=== PATIENT | male | born 1950 | race Caucasian/White ===

== ENCOUNTER → 2020-05-09 09:18 | Outpatient (BNVA) | payer MEDICARE, OTHER, SELFPAY | PROVIDERS: Visit Provider Urology | DX: N41.9 Inflammatory disease of prostate, unspecified (principal); N40.1 Benign prostatic hyperplasia with lower urinary tract symptoms; N13.8 Other obstructive and reflux uropathy | CPT/HCPCS: 99212; Q3014 ==

== ENCOUNTER → 2020-08-07 09:26 | Outpatient (BNVA) | payer MEDICARE, OTHER, SELFPAY | PROVIDERS: Visit Provider Urology | DX: N40.1 Benign prostatic hyperplasia with lower urinary tract symptoms (principal); N13.8 Other obstructive and reflux uropathy; N41.9 Inflammatory disease of prostate, unspecified | CPT/HCPCS: 51798; 99212 ==

== ENCOUNTER → 2021-02-12 08:57 | Outpatient (BNVA) | payer MEDICARE, OTHER, SELFPAY | PROVIDERS: Visit Provider Urology | DX: N40.1 Benign prostatic hyperplasia with lower urinary tract symptoms (principal); N13.8 Other obstructive and reflux uropathy; N41.9 Inflammatory disease of prostate, unspecified | CPT/HCPCS: 51798; 99212 ==

== ENCOUNTER 2022-01-21 13:41 | Outpatient (REF) | payer MEDICARE, OTHER, SELFPAY | END 2022-01-21 13:42 | disposition home or self-care (01) | LOC: HO.HMGCLDS 13:41 | PROVIDERS: Visit Provider Urology | DX: Z12.5 Encounter for screening for malignant neoplasm of prostate (principal); N40.1 Benign prostatic hyperplasia with lower urinary tract symptoms; N13.8 Other obstructive and reflux uropathy | CPT/HCPCS: 36415; 84153 ==

== ENCOUNTER → 2022-02-12 09:21 | Outpatient (BNVA) | payer MEDICARE, OTHER, SELFPAY | PROVIDERS: Visit Provider Urology | DX: N40.1 Benign prostatic hyperplasia with lower urinary tract symptoms (principal); N13.8 Other obstructive and reflux uropathy; N41.1 Chronic prostatitis; B96.89 Other specified bacterial agents as the cause of diseases classified elsewhere | CPT/HCPCS: 51798; 99212 ==

== ENCOUNTER 2023-01-22 12:18 | Outpatient (REF) | payer MEDICARE, OTHER, SELFPAY ==
[2023-01-22 13:51] LABS: Prostate Specific Antigen 1.06 ng/mL (<0.05-4.0)
== END 2023-01-22 12:19 | disposition home or self-care (01) ==
LOC: HO.10HDL 12:18
PROVIDERS: Visit Provider Urology
DX: N40.1 Benign prostatic hyperplasia with lower urinary tract symptoms (principal); N13.8 Other obstructive and reflux uropathy; Z12.5 Encounter for screening for malignant neoplasm of prostate
CPT/HCPCS: 36415; 84153

== ENCOUNTER 2023-02-13 08:50 | Outpatient (AMB) | payer MEDICARE, OTHER, SELFPAY ==
--- NOTE | 2023-02-13 08:50 | MHC.OFFVIS ---
Intake Intake Visit Reasons: 1Y PSA(set) Intake Note: Patient presents for tele visit follow up PSA Urology Medications: Finasteride Blood Thinner: none Water Service Dispatcher Required: No Allergies No Known Allergies Allergy (Verified 02/13/23 08:53) HPI HPI Comments History of Present Illness Details Kiarra is a pleasant male. He is seen for the following urologic conditions - prostatitis with chronic pelvic pain Telemedicine Evaluation 15 min Consultation [employer] Video attempted Yearly follow-up No episodes of prostatitis while on finasteride 3 times a week Continue 12 month follow-up PSA Went to [employer] last night and had a great time PSA 01/20 1.2 Prostatitis/CPPS: Ongoing symptoms Chronic discolored ejaculate Help with meloxicam They present for evaluation of chronic prostatitis. He is currently being treated with observation. Current symptoms include nocturia No incomplete emptying No frequency No intermittency No urgency Yes Symptoms have been present Ongoing since August 2018. Pain is present lower back, perineum. Type of prostatitis II - chronic bacterial. [facility] Medical History Chronic prostatitis Surgical History History of cervical spinal surgery History of back surgery Review of Systems Const Denies chills and Denies fever(s) Card Reports no additional complaints and Denies syncope Resp Denies cough GI Denies abdominal pain and Denies heartburn Reports as per HPI and Denies change in libido Neuro Denies syncope Psych Denies change in libido Endo Denies change in libido Physical Exam Const General: cooperative, healthy appearing, comfortable and no acute distress Orientation/consciousness: patient oriented x3 HEENT Face and sinus: Yes normal facial exam Mouth: moist mucous membranes Neck Neck: Yes normal visual inspection, Yes full ROM and Yes trachea midline Chest Chest palpation & inspection: normal inspection of the chest Resp Effort & Inspection: normal respiratory effort, able to speak in complete sentences and no respiratory distress GI Inspection: Yes normal to inspection Back/Spine/Pelvis Cervical Spine: normal cervical lordosis Thoracic/Lumbar Spine: thoracic and lumbar spine normal to inspection Skin General skin exam: no rashes or lesions noted Neuro General: patient oriented x3, gait normal, tone normal and moves all extremities Extrem General: Yes normal to inspection and Yes capillary refill normal Assessment & Plan Assessment & Plan (1) BPH w urinary obs/LUTS: Code(s): N40.1 - Benign prostatic hyperplasia with lower urinary tract symptoms; N13.8 - Other obstructive and reflux uropathy (2) Prostatitis: Code(s): N41.9 - Inflammatory disease of prostate, unspecified Plan Twelve month follow-up Patient Instructions: Imaging studies, laboratory and physical exam results were discussed and reviewed in detail. No major barriers to patient understanding were identified. An opportunity to ask questions regarding the treatment plan was provided. All questions were answered. The patient expressed understanding and agreement with the above treatment plan. The patient is aware they should contact our office by phone for worsening of their current condition or the appearance of new urologic symptoms. Compliance is encouraged with any medications and followup testing that is ordered. It is a privilege to participate in the urologic care of your patient. If you have any questions or concerns regarding treatment for the above conditions, or other urologic issues, please do not hesitate to contact me. The office telephone contact is [phone]. This note is constructed using voice recognition software. While every effort has been made to ensure accuracy pharmacy informaticist errors may have been included. Yours sincerely, Dr Boyd Guzmán MD, [facility] - Urology Providers of Expert, Compassionate Care for the Genitourinary System Telehealth Telehealth Location of provider rendering services: practice address Location of patient: address on file Patient Identification confirmed using: Name, : Yes Telehealth method: video Patient verbally consented to treatment: Yes Patient verbally consented to billing insurance company: Yes Patient informed of any privacy concerns related to visit: Yes Coding Level of Care Code Tele Est Pt Level 4 (54995) Diagnoses BPH w urinary obs/LUTS N40.1; N13.8 Prostatitis N41.9
== END 2023-02-13 09:55 | disposition home or self-care (01) ==
LOC: HO.HUSH 08:50
PROVIDERS: Visit Provider Urology
DX: N40.1 Benign prostatic hyperplasia with lower urinary tract symptoms (principal); N13.8 Other obstructive and reflux uropathy; N41.9 Inflammatory disease of prostate, unspecified
CPT/HCPCS: 99213

== ENCOUNTER → 2023-02-13 08:50 | Outpatient (BNVA) | payer MEDICARE, OTHER, SELFPAY | PROVIDERS: Visit Provider Urology ==

== ENCOUNTER 2024-02-12 10:42 | Outpatient (REF) | payer MEDICARE, OTHER, SELFPAY ==
[2024-02-12 11:54] LABS: Prostate Specific Antigen 0.65 ng/mL (<0.05-4.0)
== END 2024-02-12 10:43 | disposition home or self-care (01) ==
LOC: HO.LAB 10:42
PROVIDERS: Visit Provider Urology
DX: N40.1 Benign prostatic hyperplasia with lower urinary tract symptoms (principal); N13.8 Other obstructive and reflux uropathy; N41.9 Inflammatory disease of prostate, unspecified; Z12.5 Encounter for screening for malignant neoplasm of prostate
CPT/HCPCS: 36415; 84153

== ENCOUNTER 2024-02-16 08:28 | Outpatient (AMB) | payer MEDICARE, OTHER, SELFPAY ==
--- NOTE | 2024-02-16 08:32 | A.OFFVIS_ITS ---
Intake Visit Reasons: 1Y Follow Up- PVR/PSA(set) Intake Note: Patient is Present for PVR/PSA Urology Med: Finasteride Antibiotic Allergy:None Blood Thinner: None Last PVR: 0 Todays PVR: 0 Recent PSA: 02/12/24- 0.65 Patient states he is no longer taking Finasteride Marine Engineering Consultant Required: No Accompanied by: Self / Same As Patient Allergies No Known Allergies Allergy (Verified 02/16/24 08:37) Medication List - Last Reconciled 02/16/24 by Boyd Guzmán MD finasteride 5 mg PO DAILY 90 days HPI Comments Details: Kiarra is a pleasant male. He is seen for the following urologic conditions - prostatitis with chronic pelvic pain Yearly follow-up No episodes of prostatitis while on finasteride 3 times a week - has stopped Continue 12 month follow-up PSA PSA 01/20 1.2, 02/22 0.7 Planning on skiing this year at [employer] Prostatitis/CPPS: Ongoing symptoms Chronic discolored ejaculate Help with meloxicam They present for evaluation of chronic prostatitis. He is currently being treated with observation. Current symptoms include nocturia No incomplete emptying No frequency No intermittency No urgency Yes Symptoms have been present Ongoing since August 2018. Pain is present lower back, perineum. Type of prostatitis II - chronic bacterial. [facility] Medical History Chronic prostatitis Surgical History History of cervical spinal surgery History of back surgery Review of Systems Const Denies chills and Denies fever(s) Card Reports no additional complaints and Denies syncope Resp Denies cough GI Denies abdominal pain and Denies heartburn Reports as per HPI and Denies change in libido Neuro Denies syncope Psych Denies change in libido Endo Denies change in libido Physical Exam Const General: cooperative, healthy appearing, comfortable and no acute distress Orientation/consciousness: patient oriented x3 HEENT Face and sinus: Yes normal facial exam Mouth: moist mucous membranes Neck Neck: Yes normal visual inspection, Yes full ROM and Yes trachea midline Chest Chest palpation & inspection: normal inspection of the chest Resp Effort & Inspection: normal respiratory effort, able to speak in complete sentences and no respiratory distress GI Inspection: Yes normal to inspection Back/Spine/Pelvis Cervical Spine: normal cervical lordosis Thoracic/Lumbar Spine: thoracic and lumbar spine normal to inspection Skin General skin exam: no rashes or lesions noted Neuro General: patient oriented x3, gait normal, tone normal and moves all extremities Extrem General: Yes normal to inspection and Yes capillary refill normal Office Procedures Post Void Residual Post Residual Void Post Void Residual (PVR): 0 23458-Zvxu Void Residual by ultrasound Assessment & Plan Assessment & Plan (1) BPH w urinary obs/LUTS: Code(s): N40.1 - Benign prostatic hyperplasia with lower urinary tract symptoms; N13.8 - Other obstructive and reflux uropathy Category: Medical (2) Prostatitis: Code(s): N41.9 - Inflammatory disease of prostate, unspecified Category: Medical Plan Twelve month follow-up PSA Orders: Orders AMB Post Void Residual by ultrasound Today N13.8 - Other obstructive and reflux uropathy, N40.1 - Benign prostatic hyperplasia with lower urinary tract symptoms Prostate Specific Antigen 364 Days N41.9 - Inflammatory disease of prostate, unspecified Patient Instructions: Imaging studies, laboratory and physical exam results were discussed and reviewed in detail. No major barriers to patient understanding were identified. An opportunity to ask questions regarding the treatment plan was provided. All questions were answered. The patient expressed understanding and agreement with the above treatment plan. The patient is aware they should contact our office by phone for worsening of their current condition or the appearance of new urologic symptoms. Compliance is encouraged with any medications and followup testing that is ordered. It is a privilege to participate in the urologic care of your patient. If you have any questions or concerns regarding treatment for the above conditions, or other urologic issues, please do not hesitate to contact me. The office telephone contact is [phone]. This note is constructed using voice recognition software. While every effort has been made to ensure accuracy custom van converter errors may have been included. Yours sincerely, Dr Boyd Guzmán MD, ANNM[facility] - Urology Providers of Expert, Compassionate Care for the Genitourinary System Coding Level of Care Code Est Pt Level 4 (13388) Diagnoses BPH w urinary obs/LUTS N40.1; N13.8 Prostatitis N41.9 CPT Codes Post Residual Void - PVR CPT Code: [id number]-Uqbc Void Residual by ultrasound ([id number])
== END 2024-02-16 09:02 | disposition home or self-care (01) ==
PROVIDERS: Visit Provider Urology
DX: N40.1 Benign prostatic hyperplasia with lower urinary tract symptoms (principal); N13.8 Other obstructive and reflux uropathy; N41.9 Inflammatory disease of prostate, unspecified
CPT/HCPCS: 99214

== ENCOUNTER → 2024-02-16 08:28 | Outpatient (BNVA) | payer MEDICARE, OTHER, SELFPAY | PROVIDERS: Visit Provider Urology | DX: N40.1 Benign prostatic hyperplasia with lower urinary tract symptoms (principal); N13.8 Other obstructive and reflux uropathy; N41.9 Inflammatory disease of prostate, unspecified; Z79.899 Other long term (current) drug therapy | CPT/HCPCS: 51798; 99212 ==

== ENCOUNTER 2025-02-08 09:33 | Outpatient (REF) | payer MEDICARE, OTHER, SELFPAY ==
--- OUTSIDE RECORDS SUMMARY | 2025-02-08 11:21 | XMS_ITS | Patient Health Record ---
Author Organization [facility] [place] [place] Address [address] [place] [address] Care Team Providers Care Water Supply Technician Name Role Phone Roberto Tinsley Unavailable [phone] Reason For Referral No Information Medications Medication SIG (Take, Route, Frequency, Duration) Notes Start Date End Date Status Physical Therapy . . . 2-3x/week; Durat ion: 3-4 weeks 07/28/2017 Active Diflucan 200 MG 1 tablet Orally Once a week; Duration: 28 Not-Taking Night Splint AFO - L1930 as directed 07/28/2017 Active Social History Tobacco Use: Social History Observation Description Date Details (start date - stop date) Never Smoker NA - NA Tobacco Use/Smoking Question Answer Notes Are you a: nonsmoker Additional Findings: Tobacco Non-User Current no n-smoker Alcohol Screen Question Answer Notes Did you have a drink contain ing alcohol in the past year? Yes How many drinks did you have on a typical day when you were drinking in the past year? 1 or 2 drinks (0 point) Points 0 Interpretation Negative Tobacco use other than smoking: Question Answer Notes Are you an other tobacco user? No Problems Problem Type SNOMED Code ICD Code Onset Dates Problem Status W/U Status Risk Notes Problem Acquired hallux rigidus (8040433) Hallux rigidus, left foot (M20.22) Active confirmed Problem Acquired hallux rigidus (1396375) Hallux rigidus, right foot (M20.21) Active confirmed Plan Of Treatment Pending Test Test Name Order Date X ray : Foot, left 2V 07/28/2017 X ray : Foot, right 2V 07/28/2017 *Liver Function Test (LFT) 12/15/2017 76976- Nail Unit Biopsy 11/16/2017 Insurance Providers Payer Name Payer Address Payer Phone Subscriber Number Group Number Insured Name Patient Relationship to Insured Coverage Start Date Coverage End Date Medicare National Govt [employer] [address] [place] [address] [id number] Brendon Monson Self - patient is the insured 7 [employer] [address] [place] [address] [id number] Brendon Monson Self - patient is the insured Medical (General) History Medical History History ICD Code Chicken pox Joint implants/screws Measles Mumps Surgical History Surgery Date(Month/Year) Fusion Anterior Cervical 1997 Collar Bone 2013 Anterior Cervical (2 discs) 2013
--- OUTSIDE RECORDS SUMMARY | 2025-02-08 11:21 | XMS_ITS | Clinical Summary ---
Author Organization [facility] Address [address] [place] [address] Care Team Providers Care Bridge Crane Operator Name Role Phone Unavailable Primary Care Provider Unavailabl e Social History Tobacco Use Types Packs/Day Years Used Date Smoking Tobacco: Never Assessed Sex and Gender Information Value Date Recorded Sex Assigned at Not on file Gender Identity Not on file Sexual Orientation Not on file Plan of Treatment Health Maintenance Due Date Last Done Comments Hepatitis C Screening 1950 COVID-19 Vaccine (#1) 1952 Depression Screening 1964 Preventative Health Evaluation 01/07/1970 DTap / Tdap / Td (1 - Tdap) 01/07/1971 Colon Cancer Screening (Colonoscopy) 01/07/1997 Shingrix-Zoster Vaccine (1 of 2) 01/07/2002 Fall Risk Assessment 01/07/2017 Pneumococcal Vaccine (1 of 1 - PCV) 01/07/2017 Influenza Vaccine (#1) 2025 RSV Adult > 60+ Yrs or Pregn ant (1 - 1-dose 75+ series) 01/07/2027 Hepatitis B Vaccines Aged Out No long er eligible based on patient's age to complete this topic RSV Ped < 20 months Aged Out No longe r eligible based on patient's age to complete this topic
--- OUTSIDE RECORDS SUMMARY | 2025-02-08 11:21 | XMS_ITS | Clinical Summary ---
Author Organization [facility] Address [address] [place] [address] Care Team Providers Care Chemical Plant Manager Name Role Phone Unavailable Primary Care Provider Unavailabl e Social History Tobacco Use Types Packs/Day Years Used Date Smoking Tobacco: Never Assessed Sex and Gender Information Value Date Recorded Sex Assigned at Not on file Legal Sex Male 6:08 PM EST Gender Identity Not on file Sexual Orientation Not on file Plan of Treatment Health Maintenance Due Date Last Done Comments DTaP,Tdap,and Td Vaccines (1 - Tdap) 01/07/1971 Pneumococcal Vaccine: 50+ Ye ars (1 of 1 - PCV) 01/07/2002 Zoster Vaccines (1 of 2) 01/07/2002 Depression Screening 06/01/2024 COVID-19 Vaccine (1 - 2023-2 5 season) 2025 Influenza Vaccine (#1) 2025 RSV Immunization Adult Patie nts (1 - 1-dose 75+ series) 01/07/2027 HIB Vaccines Aged Out No longer eligi ble based on patient's age to complete this topic HPV Vaccines Aged Out No longer eligi ble based on patient's age to complete this topic Hepatitis A Vaccines Aged Out No long er eligible based on patient's age to complete this topic Hepatitis B Vaccines Aged Out No long er eligible based on patient's age to complete this topic IPV Vaccines Aged Out No longer eligi ble based on patient's age to complete this topic MMR Vaccines Aged Out No longer eligi ble based on patient's age to complete this topic Meningococcal ACWY Vaccine Aged Out N o longer eligible based on patient's age to complete this topic Meningococcal B Vaccine Aged Out No l onger eligible based on patient's age to complete this topic RSV Immunization Patients Un nancy 20 months Aged Out No longer eligible b ased on patient's age to complete this topic Varicella Vaccines Aged Out No longer eligible based on patient's age to complete this topic
--- OUTSIDE RECORDS SUMMARY | 2025-02-08 11:21 | XMS_ITS | Clinical Summary ---
Author Organization [facility] Address [address] [place] [address] [address] [place] [address] Care Team Providers Care Motorcycle Repair Shop Supervisor Name Role Phone Unavailable Primary Care Provider Unavailabl e Immunizations Immunization Administration Dates Next Due Influenza High-dose Quadrivalent Preservative Fr ee 03/23/2023 Influenza Quadrivalent Adjuvanted 03/12/2020 Influenza injectable quadrivalent preservative f ree 03/23/2019 Influenza, High Dose Seasonal, Preservative Free 03/19/2018 Pfizer Covid-19 Vaccine 12+ 06/11/2023 TD (adult), 2 Lf tetanus tox oid, preservative free, adsorbed 03/23/2023 Tdap 05/07/2020 Social History Tobacco Use Types Packs/Day Years Used Date Smoking Tobacco: Never Assessed Sex and Gender Information Value Date Recorded Sex Assigned at Male 06/11/2023 10:05 AM EST Legal Sex Male 10:02 AM EST Gender Identity Male 06/11/2023 10:05 AM EST Sexual Orientation Choose not to disclose 2023 10:05 AM EST Plan of Treatment Health Maintenance Due Date Last Done Comments CT Colonography 1952 Colonoscopy 1952 Colorectal Cancer Screening 1952 Depression Screening 1952 FIT DNA/Cologuard 1952 FIT 1952 FOBT 1952 Lipid Panel 1952 SDOH Screening 1950 Sigmoidoscopy 1952 Alcohol/Substance Use Screening 1964 Tobacco Screening 1964 Hepatitis C Screening 01/07/1970 Pneumococcal Vaccine: 50+ Years (1 of 1 - PCV) 01/07/2002 Zoster Vaccines (1 of 2) 01/07/2002 COVID-19 Vaccine (2024- season) 2025 06/11/2023, 09/10/2021, 03/03/2021, Additional history exists Influenza Vaccine (#1) 2025 3, 03/12/2020, 03/23/2019, Additional history exists RSV Patients and Patients Aged 60 years or older (1 - 1-dose 75+ series) 01/07/2027 DTaP/Tdap/Td Vaccines (3 - Td or Tdap) 03/23/2033 03/23/2023, 05/07/2020 HIB Vaccines Aged Out No longer eligi [...] patient's age to complete this topic Meningococcal Vaccine Aged Out No nhi digna eligible based on patient's age to complete this topic RSV under 20 months Aged Out No longe r eligible based on patient's age to complete this topic Rotavirus Vaccines Aged Out No longer eligible based on patient's age to complete this topic Insurance MEDICARE
[2025-02-08 11:25] LABS: Prostate Specific Antigen 0.72 ng/mL (<0.05-4.0)
== END 2025-02-08 09:34 | disposition home or self-care (01) ==
LOC: HO.LAB 09:33
PROVIDERS: Visit Provider Urology
DX: Z12.5 Encounter for screening for malignant neoplasm of prostate (principal); N41.9 Inflammatory disease of prostate, unspecified
CPT/HCPCS: 36415; 84153

== ENCOUNTER 2025-02-14 08:14 | Outpatient (AMB) | payer MEDICARE, OTHER, SELFPAY ==
--- NOTE | 2025-02-14 08:13 | MHC.OFFVIS ---
Intake Visit Reasons: 1y follow up Intake Note: patient presents today for: 1yr follow up urology medications: finasteride blood thinners: none labs done 02/08/25: PSA 0.72 today's PVR: 0mls Railroad Hand Required: No Accompanied by: Self / Same As Patient Allergies No Known Allergies Allergy (Verified 02/14/25 08:14) HPI Comments Details: Kiarra is a pleasant male. He is seen for the following urologic conditions - prostatitis with chronic pelvic pain Yearly follow-up No episodes of prostatitis while on finasteride 3 times a week - has stopped P.r.n. follow-up He understands how his symptoms progress PSA 01/20 1.2, 02/22 0.7, 02/23 0.7 Planning on skiing this year at [employer] Prostatitis/CPPS: Ongoing symptoms Chronic discolored ejaculate Help with meloxicam They present for evaluation of chronic prostatitis. He is currently being treated with observation. Current symptoms include nocturia No incomplete emptying No frequency No intermittency No urgency Yes Symptoms have been present Ongoing since August 2018. Pain is present lower back, perineum. Type of prostatitis II - chronic bacterial. [facility] Medical History Chronic prostatitis Surgical History History of cervical spinal surgery History of back surgery Review of Systems Const Denies chills and Denies fever(s) Card Reports no additional complaints and Denies syncope Resp Denies cough GI Denies abdominal pain and Denies heartburn Reports as per HPI and Denies change in libido Neuro Denies syncope Psych Denies change in libido Endo Denies change in libido Physical Exam Const General: cooperative, healthy appearing, comfortable and no acute distress Orientation/consciousness: patient oriented x3 HEENT Face and sinus: Yes normal facial exam Mouth: moist mucous membranes Neck Neck: Yes normal visual inspection, Yes full ROM and Yes trachea midline Chest Chest palpation & inspection: normal inspection of the chest Resp Effort & Inspection: normal respiratory effort, able to speak in complete sentences and no respiratory distress GI Inspection: Yes normal to inspection Back/Spine/Pelvis Cervical Spine: normal cervical lordosis Thoracic/Lumbar Spine: thoracic and lumbar spine normal to inspection Skin General skin exam: no rashes or lesions noted Neuro General: patient oriented x3, gait normal, tone normal and moves all extremities Extrem General: Yes normal to inspection and Yes capillary refill normal Assessment & Plan Assessment & Plan (1) Prostatitis: Code(s): N41.9 - Inflammatory disease of prostate, unspecified Category: Medical (2) BPH w urinary obs/LUTS: Code(s): N40.1 - Benign prostatic hyperplasia with lower urinary tract symptoms; N13.8 - Other obstructive and reflux uropathy Category: Medical Plan May follow with PCP Patient Instructions: This note is constructed using voice recognition software. While every effort has been made to ensure accuracy junior staff accountant errors may have been included. Imaging studies, laboratory and physical exam results were discussed and reviewed in detail. No major barriers to patient understanding were identified. An opportunity to ask questions regarding the treatment plan was provided. All questions were answered. The patient expressed understanding and agreement with the above treatment plan. The patient is aware they should contact our office by phone for worsening of their current condition or the appearance of new urologic symptoms. Compliance is encouraged with any medications and followup testing that is ordered. It is a privilege to participate in the urologic care of your patient. If you have any questions or concerns regarding treatment for the above conditions, or other urologic issues, please do not hesitate to contact me. The office telephone contact is [phone]. Sincerely, Dr Boyd Guzmán MD, ANNMAR[facility] - Urology Compassionate Specialist Care for the Genitourinary System Coding Level of Care Code Est Pt Level 4 (95180) Complex EM visit Add On G2211 Diagnoses Prostatitis N41.9 BPH w urinary obs/LUTS N40.1; N13.8
--- OUTSIDE RECORDS SUMMARY | 2025-02-14 09:29 | XMS_ITS | Patient Health Record ---
Author Organization [facility] [place] [place] Address [address] [place] [address] Care Team Providers Care Stunt Man Name Role Phone Roberto Tinsley Unavailable [phone] Reason For Referral No Information Medications Medication [...] Status Risk Notes Problem Acquired hallux rigidus (8324367) Hallux rigidus, left foot (M20.22) Active confirmed Problem Acquired hallux rigidus (8835315) Hallux rigidus, right foot (M20.21) Active confirmed Plan Of Treatment Pending Test Test Name Order Date X ray : Foot, left 2V 07/28/2017 X ray : Foot, right 2V 07/28/2017 *Liver Function Test (LFT) 12/15/2017 29001- Nail Unit Biopsy 11/16/2017 Insurance Providers Payer Name Payer Address Payer Phone Subscriber Number Group Number Insured Name Patient Relationship to Insured Coverage Start Date Coverage End Date Medicare National Govt [employer] [address] [place] [address] [id number] Brendon Monson Self - patient is the insured 7 [employer] [address] [place] [address] [phone] [id number] Brendon Monson Self - patient is the insured Medical (General) History Medical History History ICD Code Chicken pox Joint implants/screws Measles Mumps Surgical History Surgery Date(Month/Year) Fusion Anterior Cervical 1997 Collar Bone 2013 Anterior Cervical (2 discs) 2013
--- OUTSIDE RECORDS SUMMARY | 2025-02-14 09:29 | XMS_ITS | Clinical Summary ---
Author Organization [facility] Address [address] [place] [address] Care Team Providers Care Velvet Steamer Name Role Phone Unavailable Primary Care Provider [...]
== END 2025-02-14 08:57 | disposition home or self-care (01) ==
LOC: HO.HUSH 08:14
PROVIDERS: Visit Provider Urology
DX: N41.9 Inflammatory disease of prostate, unspecified (principal); N40.1 Benign prostatic hyperplasia with lower urinary tract symptoms; N13.8 Other obstructive and reflux uropathy; Z13.9 Encounter for screening, unspecified
CPT/HCPCS: 99214; G2211

== ENCOUNTER → 2025-02-14 08:14 | Outpatient (BNVA) | payer MEDICARE, OTHER, SELFPAY | PROVIDERS: Visit Provider Urology | DX: N40.1 Benign prostatic hyperplasia with lower urinary tract symptoms (principal); N41.9 Inflammatory disease of prostate, unspecified; N13.8 Other obstructive and reflux uropathy | CPT/HCPCS: 51798; 81003; 99212 ==